=== PATIENT | male | born 1975 | race Caucasian/White ===

== ENCOUNTER 2020-09-30 11:16 | Emergency (ER) | payer OTHER ==
[~2020-09-30 11:16] MED LIST: PREDNISONE20 MG PO
== END 2020-09-30 14:28 | disposition home or self-care (01) ==
LOC: ER1 11:16
DX: S63.501A Unspecified sprain of right wrist, initial encounter (principal); F17.200 Nicotine dependence, unspecified, uncomplicated; W01.0XXA Fall on same level from slipping, tripping and stumbling without subsequent striking against object, initial encounter; Z87.19 Personal history of other diseases of the digestive system; Z88.6 Allergy status to analgesic agent
CPT/HCPCS: 29125; 73110; 99283